=== PATIENT | male | born 1960 | race Caucasian/White ===

== ENCOUNTER 2017-07-31 08:50 | Emergency (ER) | payer BC ==
--- NOTE | 2017-07-31 09:50 | ERNOTE ---
Back Pain ER HPI Time Seen by Provider: 07/31/17 09:44 Source: patient Exam Limitations: no limitations Immunizations: IMMUNIZATION HX Immunizations Up to Date Yes History of Influenza Vaccine No Hx Pneumococcal Vaccination No Allergies/Adverse Reactions: Allergies Penicillins Allergy (Severe, Verified 07/31/17 09:06) Anaphylaxis morphine Allergy (Mild, Verified 07/31/17 09:06) Hives Home Medications: HOME MEDICATIONS Ibuprofen [Motrin] 800 mg PO TID PRN #30 tablet 07/31/17 [Last Taken Unknown] Narrative: patient fell two days ago onto his right side and now presents to ED for right sided lateral chest wall pain. He took some Aspirin for his pain last night but pain is getting worse. He has no shortness of breath however with deep inspiration his right sided chest pain worsens Review of Systems - Review of Systems Constitutional: Present: no symptoms reported EYE: Present: no symptoms reported ENT: Present: no symptoms reported Respiratory: Present: See HPI Cardiology: Present: chest pain Gastrointestinal/Abdominal: Present: no symptoms reported Genitourinary: Present: no symptoms reported Musculoskeletal: Present: no symptoms reported Skin: Present: no symptoms reported - Patient's Past Medical History Patient History - Medical: Other Patient History - Cardiac/Respiratory: No pertinent hx Patient History - Cancer: Colon Patient History - Surgical Procedures: Colon Resection, Colonoscopy Patient History - Other: None - Family History Mother Family History - Medical: No pertinent hx, Glaucoma, Other Family History - Cardiac/Respiratory: Arrhythmias, Other Father Family History - Medical: , Glaucoma Family History - Cardiac/Respiratory: No pertinent hx - Social History Living Situations: home Abuse History: No History of abuse Psych History: No pertinent hx Alcohol Use: none Drug Use: none - Immunizations Immunizations Up to Date: Yes Hx Pneumococcal Vaccination: No History of Influenza Vaccine: No Physical Exam - Physical Exam General Appearance: Present: wd/wn, alert, no apparent distress Head Exam: Present: normal inspection, no evidence of injury Neck: Present: normal inspection Respiratory: Present: no respiratory distress, lungs clear Cardiovascular/Chest: Present: chest tenderness, other - Patient has right sided chest wall pain and tenderness on palpation. I do not feel any crepitus. There is significant ecchymosis in the mid axillary line in areas of ribs number 7,8,9 ED Progress - Vital Signs Vital Signs: Vital Signs 07/31/17 09:02 Temperature 36.9 C Pulse Rate 57 L Respiratory 12 Rate Blood Pressure 170/72 O2 Sat by Pulse 99 Oximetry - Progress/Reassessment Chief Complaint: Back Pain Plan - Plan Plan: Patient's CT scan reveals a fracture which is nondisplaced of ribs #9 and 10 additionally a lingular lesion is noted and some bony lesions are noted as well these findings will be communicated with Dr. [place] the patient's primary care physician as none of which are emergent. We offered pain medication and an injectable form for the patient but the patient refused it. At this time this patient will be discharged home to follow up with his primary care doctor and he will be given a prescription for pain medication Departure Clinical Impression: Rib fractures Qualifiers: Encounter type: initial encounter Rib fracture type: multiple ribs Fracture type: closed Laterality: right Qualified Code(s): S22.41XA - Multiple fractures of ribs, right side, initial encounter for closed fracture - Departure Disposition: Home self-care Condition: Fair Instructions: Rib Fracture, [id number] Referrals: Clovis Hull MD [Primary Care Provider] - Prescriptions: Ibuprofen [Motrin] 800 mg PO TID PRN #30 tablet PRN Reason: Pain
[2017-07-31] MEDS ORDERED: KETOROLAC TROMETHAMINE 60 MG/2 ML VIAL IM ONE ×2 (10:01→10:03)
[2017-07-31 11:10] VITALS: BP 168/58
== END 2017-07-31 12:03 | disposition home or self-care (01) ==
LOC: ER 08:50
DX: S22.41XA Multiple fractures of ribs, right side, initial encounter for closed fracture (principal)